=== PATIENT | male | born 1995 | race Caucasian/White ===

== ENCOUNTER 2019-05-06 19:33 | Inpatient (IN) | payer BC ==
[2019-05-06 20:39] LABS: #Eosinphils 0.1 thou/uL (0.0-0.7); #Lymphocytes 1.7 thou/uL (1.20-3.40); #Monocytes 0.4 thou/uL (0.11-0.59); #Neutrophils 4.3 thou/uL (1.40-6.50); %Basophils 0.1 % (0.0-1.0); %Eosinophils 1.6 % (0.0-10.0); %Lymphocytes 25.6 % (21.0-51.0); %Neutrophils 66.7 % (42.0-75.0); Hemoglobin 15.3 g/dL (14.0-18.0); Mean Corpuscular HGB CONC 33.3 g/dL (32.0-36.0); Mean Corpuscular Hemoglobin 28.4 pg (27.0-31.0); Mean Corpuscular Volume 85.4 fL (78.0-98.0); Mean Platelet Volume 5.7 fL (7.4-10.4); Platelet Count 175 thou/uL (130-400); RBC Distribution Width 11.9 % (11.5-14.5); Red Blood Cell (RBC) Count 5.39 mill/uL (4.70-6.10); White Blood Cell (WBC) Count 6.5 thou/uL (4.8-10.8)
[2019-05-06 20:57] LABS: Bilirubin Negative (Negative); Blood, Urine Negative (Negative); Clarity Clear (Clear); Glucose, Urine (Dipstick) Normal (Negative); Leukocyte Negative Leu/uL (Negative); Nitrite Negative (Negative); Protein, Urine (Dipstick) Negative (Neg-Trace); Urobilinogen Normal mg/dL (Less than 2)
[2019-05-06 20:59] LABS: Acetaminophen Less than 6.0 mcg/mL (10.0-30.0); Alcohol Less than 10 mg/dL (Less than 10); CK (CPK) 79 U/L (30-200); Salicylate Less than 8.0 mg/dL (15.0-30.0)
[2019-05-06 21:01] LABS: ALT (SGPT) 15 U/L (8-55); AST (SGOT) 12 U/L (5-34); Albumin 4.5 g/dL (3.5-5.0); Alkaline Phosphatase 39 U/L (40-110); Anion Gap 12 mmol/L (10-20); BUN (Urea Nitrogen) 10 mg/dL (8.9-20.6); Bilirubin, Total 1.1 mg/dL (0.2-1.2); Calc. Creatinine Clearance 0 mL/min (70-130); Calcium 9.2 mg/dL (7.8-10.44); Carbon Dioxide 28 mmol/L (22-29); Chloride 106 mmol/L (98-107); Estimated GFR-MDRD 73; Globulin 2.3 g/dL (2.4-3.5); Glucose 89 mg/dL (70-105); Lipase 12 U/L (8-78); Potassium 4.1 mmol/L (3.5-5.1); Protein, Total 6.8 g/dL (6.0-8.3); Sodium 142 mmol/L (136-145)
[2019-05-06 21:07] LABS: Amphetamine Not Detected (NotDetected); Barbiturates Screen Not Detected (NotDetected); Benzodiazepine Screen Detected (NotDetected); Cocaine Metabolite Screen Not Detected (NotDetected); Medtox Control Line Valid? VALID (VALID); Medtox Reader # READER 4; Methadone Not Detected (NotDetected); Methamphetamine Not Detected (NotDetected); Opiate Screen Not Detected (NotDetected); Oxycodone Screen Not Detected (NotDetected); Phencyclidine (PCP) Not Detected (NotDetected); THC/Cannabinoid Screen Not Detected (NotDetected); Tricyclic Screen Not Detected (NotDetected)
[2019-05-07] MEDS ORDERED: Acetaminophen 325 MG TAB PO PRN (00:21)
[2019-05-07] MEDS ORDERED: Ondansetron PF 4 MG/2 ML Vial IVP PRN (00:21)
[2019-05-07] MEDS ORDERED: Ondansetron ODT 4 MG TAB SL PRN (00:21)
--- NOTE | 2019-05-07 00:54 | PDOC.FPRHP ---
- History of Present Illness Chief Complaint: AMS History of Present Illness: 23yo male with h/o of EtOH and benzo abuse presented to ED as transfer from [facility] for AMS 2/2 suspected benzo withdrawal. On exam, pt was A/ O x1, drowsy but arousable with verbal stimulation and able to obtain ROS but appears confused and unable to provide history 2/2 mentation. History obtained from EDMD and previous documentation. Pt was inpt rehab for alcohol and benzo abuse for past 4 days, was seen normal in the AM, lab was drawn on him at about noon and found to be confused and altered. Taken to [facility]. Concern for benzo withdrawl. Extruding Press Adjuster consulted who rec donald benzos. Pt was agitated and given Verzed and Valium for sedation for CT head. CT head negative. Was then transported to [facility] for higher lv of care. Per report, staff at rehab state very unlikely he had access to outside benzos or EtOH. ED Course: Per report, pt initially A/O x3 with discoordination and slurred speech but able to follow neuro commands and provide some history. Admitted for further eval. - Allergies/Adverse Reactions Allergies Allergy/AdvReac Type Severity Reaction Status Date / Time No Known Allergies Allergy Unverified 05/07/19 00:21 - Home Medications Medication Instructions Recorded Confirmed Type Cyclobenzaprine [Flexeril] 10 mg PO TID 05/07/19 05/07/19 History Escitalopram Oxalate [Lexapro] 10 mg PO DAILY 05/07/19 05/07/19 History Folic Acid 1 mg PO DAILY 05/07/19 05/07/19 History Methocarbamol [Robaxin] 500 mg PO DAILY 05/07/19 05/07/19 History Thiamine 100 mg PO DAILY 05/07/19 05/07/19 History chlordiazePOXIDE/Clidinium Br 1 each PO DAILY 05/07/19 05/07/19 History [Chlordiazepoxide-Clidinium Cap] traZODone HCl [Trazodone HCl] 100 mg PO HS 05/07/19 05/07/19 History - History PMHx: None PSHx: none FHx: noncontributory Social: Admits to abusing EtOH and Xanax abuse. Last use per report was Friday - Review of Systems ROS unobtainable: due to mental status - Vital signs BP: 112/63 HR: 62 RR: 17 Tmax: 97.7 Pox: 100% on RA Wt: 92.17kg - Physical Exam Constitutional: well developed, other (drowsy but arouses to verbal stimulation. GCS 11. Unable to answer questions appropriately.) HEENT: PERRLA, conjunctiva clear, no scleral icterus, other (dry MM, nystagmus) Neck: supple, trachea midline Heart: RRR, normal S1/S2, no murmurs/rubs/gallops, pulses present, no edema Lungs: CTAB, no respiratory distress, good air movement, no rales/rhonchi, no wheezing Abdomen: soft, non-tender, bowel sounds present Musculoskeletal: normal structure, normal tone, other (4/5 strength throughout but difficulty with following commands) Neurological: no focal deficit, other (unable to complete full neuro exam 2/2 mentation, limited exam did not demonstrate any focal deficit) Skin: no rash/lesions Heme/Lymphatic: no unusual bruising or bleeding Psychiatric: other (poor insight, poor memory) FMR H&P: Results - Labs Result Diagrams: 05/06/19 20:30 05/06/19 20:30 Lab results: WBC 6.5 thou/uL (4.8-10.8) 05/06/19 20:30 Hgb 15.3 g/dL (14.0-18.0) 05/06/19 20:30 Hct 46.1 % (42.0-52.0) 05/06/19 20:30 MCV 85.4 fL (78.0-98.0) 05/06/19 20:30 Plt Count 175 thou/uL (130-400) 05/06/19 20:30 Neutrophils % 66.7 % (42.0-75.0) 05/06/19 20:30 Sodium 142 mmol/L (136-145) 05/06/19 20:30 Potassium 4.1 mmol/L (3.5-5.1) 05/06/19 20:30 Chloride 106 mmol/L (98-107) 05/06/19 20:30 Carbon Dioxide 28 mmol/L (22-29) 05/06/19 20:30 BUN 10 mg/dL (8.9-20.6) 05/06/19 20:30 Creatinine 1.23 mg/dL (0.7-1.3) 05/06/19 20:30 Glucose 89 mg/dL (70-105) 05/06/19 20:30 Calcium 9.2 mg/dL (7.8-10.44) 05/06/19 20:30 Total Bilirubin 1.1 mg/dL (0.2-1.2) 05/06/19 20:30 AST 12 U/L (5-34) 05/06/19 20:30 ALT 15 U/L (8-55) 05/06/19 20:30 Alkaline Phosphatase 39 U/L (40-110) L 05/06/19 20:30 Ammonia 20 umol/L (18-72) 05/06/19 20:27 Creatine Kinase 79 U/L (30-200) 05/06/19 20:30 Serum Total Protein 6.8 g/dL (6.0-8.3) 05/06/19 20:30 Albumin 4.5 g/dL (3.5-5.0) 05/06/19 20: Lipase 12 U/L (8-78) 05/06/19 20:30 Urine Ketones Negative mg/dL (Negative) 05/06/19 20:39 Urine Blood Negative (Negative) 05/06/19 20:39 Urine Nitrite Negative (Negative) 05/06/19 20:39 Ur Leukocyte Esterase Negative Macario/uL (Negative) 05/06/19 20:39 - EKG Interpretation EKG: QTc 463, normal sinus, no acute ST or T wave change. Good R wave progression. - Radiology Interpretation CT scan - head Status: report reviewed by me (No acute intracranial process) Chest x-ray Status: report reviewed by me (small 3mm nodules in RUL and LLL) FMR H&P: A/P - Problem List (1) Acute metabolic encephalopathy Current Visit: Yes Status: Acute Code(s): G93.41 - METABOLIC ENCEPHALOPATHY (2) ETOH abuse Current Visit: Yes Status: Acute Code(s): F10.10 - ALCOHOL ABUSE, UNCOMPLICATED (3) Benzodiazepine abuse Current Visit: Yes Status: Acute Code(s): F13.10 - SEDATIVE, HYPNOTIC OR ANXIOLYTIC ABUSE, UNCOMPLICATED - Plan 23mo CF h/o benzo and EtOH abuse presents for acute encephalopathy #Acute encephalopathy - toxic vs metabolic - last seen normal 2/13 AM - mentation appears to wax and wane with GCS of 11 upon presentation - current mentation could be 2/[address] head in ED - no acute s/s of withdrawal - admit to stroke obs for eval - ASE protocol, neuro checks q4 with NIH stroke scale per shift - low suspicion for CVA but in ddx, will need full neuro exam when mentation improves and able to follow commands, consider MRI if mentation does not improve - Unable to take PO 2/2 mentation at this time - Thiamine and folic acid IV - Valium 10mg q6hr to taper as tolerated - will hold home sedating medications - PT/OT/Speech eval - CBC and CMP WNL, UA clean, UDS positive for benzos, TSH WNL, Mg and Phos WNL - will cont to monitor mentation #Lung nodules - outpatient workup, suspect chronic fungal infx, histo vs coccidiomycoses PCP: [facility] - OOT Code: Full IVF: LR @ 120cc/hr Diet: NPO VTE: SCDs Disposition/LOS: Admit to stroke obs for acute encephalopathy. Monitor status, work up pending. Anticipate hospitalization < 48hrs pending clinical course. FMR H&P: Upper Level - Pertinent history 23 year old male that was at outpatient rehab facility for alcohol and benzo abuse presented to an outside ED for altered mentation. The onset of the altered mentation was around 12xtensive workup was 12:00 PM on 03/05. Patient was reportedly A&O x1. He was sent over to [facility] and extensive workup was initiated. CT brain negative. Patient reportedly became agitated and was given versed and ativan prior to CT scan. He then became very drowsy. Patient was on day 4 of rehab. Most information obtained from ED physician and review of records. Patient sent over from freestanding ED due to concerns for withdrawal and development of DT's. They felt patient needed higher level of care. - Pertinent findings General: Alert, drowsy, answers questions slowly. A&O x3 on my exam. HEENT: Dry MM Card: RRR, no murmurs Resp: CTA Abdomen: Soft, nontender Neuro: No focal deficits. Adult Family Home Program Manager strength intact. Patient following commands although difficult to keep awake. - Plan Date/Time: 05/07/19 0053 I, Luanne Montero, have evaluated this patient and agree with findings/plan as outlined by psychology intern resident. Pertinent changes/additions are listed here. Acute encephalopathy - Suspect 2/2 withdrawal based on review of documentation - Patient on librax at rehab facility - Initially transferred due to concerns for DT's; however, patient with no symptoms consistent with DT's at this time. Patient reportedly agitated at outside ED, but no elevation in HR, no fever, HTN - No signs of infection; CBC, CMP, UA normal - Ammonia normal - Will treat as withdrawal given no other explanation; Will start on diazepam IV as patient not tolerating PO for librium taper; will start taper over as we do not know where patient was at in the taper process - UDS positive only for benzos which patient received by ED and at rehab - ASE protocol - Banana bag w/ thiamine and folic acid - Q4h neuro checks Lung nodules - Will need follow up in outpatient setting - Do not think these are infectious nodules Alcohol abuse - See plan for above Benzo abuse - See plan for above DVT PPX: SCD's Code status: Full Dispo: Obs on stroke. Anticipate LOS 24-48 hours. Addendum - Attending - Attending Attestation Date/Time: 05/07/19 1220 I personally evaluated the patient and discussed the management with Dr. Padron/ Helio I agree with the History, Examination, Assessment and Plan documented above with any addition or exceptions noted below. 23 yo male admitted from detox/rehab for further inpatient evaluation AMS. Discussed case with Patient's Mother and Treatment facility [facility] with the patients permission. Patient gave rehab facilty much less estimation of the extent of his benzodiazepine and alcohol usuage. Patient with longstanding substance abuse and multiple rehabilitation. Patient Mother states patient was placed in detox Friday PM for further care noted his drug screen was only positive for THC at that time. Patient with 14 previous rehabilitations and now with limited parental resources to continue to assist patient. Patient relates he was recently consuming 2 pints vodka daily plus 7-10 Xanax "bars" 2mg daily. Patient endorses heavy Marijuana usuage by smoking. Medication lexapro clonidine trazadone librium 50 mg tid at rehab allergery NKDA Surgery none Hospitalization as above numerous rehab admissions was at [facility] with methamphetamine use Social 1 sister living in [facility] alcoholism noted ROS only notable withdrawal symptoms of N/V abdominal cramp anxiety remote history of asthma no inhalers used recently Patient s/p intravenous diazepam more alert and responsive with decreased aggitation. afelbrile currently with tachycardia noted HEENT AT/NC PEERL neck supple patient moves all extremities Heart no murmer or gallop Lung CTA without wheezing abdomen soft ext no C/C/e no sign recent trauma injury neuro patient oriented to person and place trouble with date but endorses admission to rehab Friday no focal motor sensory deficits A/P significant benzodiazepine/alcohol usuage with s/s c/w benzodiazepine withdrawal he appears very benzo tolerant and requiring large dose diazepam for his agitation and restlessness would rec scheduled librium 100 mg q 8 with continue diazepam 5-10 mg IV q 6 hours prn if unstable rec transfer to MICU for further monitoring of withdrawal. No s/s of infectious or other metabolic concerns to explain AMS other than benzodiazepine withdrawal rec screen for hepatitis C, HIV, RPR if not recently done although he denies IV drug usuage. If he deteriorates consider further eval prn change in status.
[2019-05-07] MEDS ORDERED: Calcium Carbonate 500 MG ChewTAB PO PRN (00:55)
[2019-05-07] MEDS ORDERED: Folic Acid 1 MG TAB PO SCH ×2 (01:45→21:00)
[2019-05-07] MEDS ORDERED: Thiamine 100 MG TAB PO SCH ×2 (01:45→21:00)
[2019-05-07 02:02] LABS: Magnesium 1.8 mg/dL (1.6-2.6); Phosphorus 3.2 mg/dL (2.3-4.7)
[2019-05-07] MEDS ORDERED: Thiamine HCl 200 MG/2 ML VIAL IM SCH (02:15)
[2019-05-07 02:19] VITALS: BMI 28.3
[2019-05-07] MEDS: Diazepam 10 MG/2 ML SYRINGE IVP SCH ×2 (02:31→09:23)
[2019-05-07] MEDS: Lactated Ringer's 1,000 ML IV SCH ×3 (02:35→16:48)
[2019-05-07] MEDS ORDERED: Diazepam 10 MG/2 ML SYRINGE IVP SCH (03:30)
[2019-05-07] MEDS: Escitalopram Oxalate 10 mg Tablet PO SCH (08:24)
[2019-05-07] MEDS: Multivitamin W/ Minerals 1 TAB PO SCH (08:24)
[2019-05-07] MEDS: Folic Acid 1 MG TAB PO SCH (08:24)
[2019-05-07] MEDS ORDERED: FLU VACC QS2019-20(6MOS UP)/PF 60 MCG/0.5 ML SYRINGE IM ONE (09:00)
[2019-05-07 09:12] LABS: HIV (1/2) Antibody/Antigen Non-Reactive (NonReactive); HIV 1/2 INDEX 0.13 S/CO (<1.00); Syphilis Antibody Nonreactive (Nonreactive); Syphilis Antibody Index 0.04 S/CO (<1.00 Non-Reactive)
[2019-05-07] MEDS ORDERED: chlordiazePOXIDE HCl 25 MG CAP PO SCH (12:30)
[2019-05-07] MEDS: chlordiazePOXIDE HCl 25 MG CAP PO SCH ×2 (14:02→21:58)
[2019-05-07] MEDS: Acetaminophen 325 MG TAB PO PRN (14:03)
[2019-05-07] MEDS: Diazepam 10 MG/2 ML SYRINGE IVP PRN (17:58)
[2019-05-07] MEDS ORDERED: Ondansetron PF 4 MG/2 ML Vial SLOW IVP PRN (20:00)
[2019-05-08] MEDS: Lactated Ringer's 1,000 ML IV SCH ×3 (03:14→23:50)
[2019-05-08] MEDS: Diazepam 10 MG/2 ML SYRINGE IVP PRN ×3 (03:57→18:26)
[2019-05-08] MEDS: chlordiazePOXIDE HCl 25 MG CAP PO SCH ×3 (06:10→21:09)
--- NOTE | 2019-05-08 06:43 | PDOC.FM ---
- Subjective Subjective: pt in bed, agitated, mild hallucinations present, VSS - Objective Vital Signs & Weight: Vital Signs (12 hours) Temp Pulse Resp BP BP BP Pulse Ox 05/08/19 03:17 97.6 F 65 18 135/74 97 05/08/19 03:00 135/74 05/07/19 23:40 100/67 05/07/19 23:34 98.6 F 64 100/67 95 05/07/19 21:56 117/71 05/07/19 21:54 98.1 F 18 117/71 98 05/07/19 20:00 98 Weight Weight 92.17 kg I&O: 05/06/19 05/07/19 05/08/19 06:59 06:59 06:59 Intake Total 363 2513 Output Total 600 Balance -237 2513 Result Diagrams: 05/06/19 20:30 05/06/19 20:30 Phys Exam - Physical Examination mild distress HEENT: moist MMs Neck: full ROM Gastrointestinal: no distention Musculoskeletal: pulses present Neurological: moves all 4 limbs Lymphatic: no nodes Psychiatric: normal affect Skin: no rash Dx/Plan (1) Severe alcohol withdrawal delirium Code(s): F10.231 - ALCOHOL DEPENDENCE WITH WITHDRAWAL DELIRIUM Status: Acute (2) Benzodiazepine abuse Code(s): F13.10 - SEDATIVE, HYPNOTIC OR ANXIOLYTIC ABUSE, UNCOMPLICATED Status : Acute (3) ETOH abuse Code(s): F10.10 - ALCOHOL ABUSE, UNCOMPLICATED Status: Acute - Plan Plan: severe withdrawal etoh/benzos - librium 100 scheduled, valium 10 q6h for agitation - monitor closely, VSS - transition to librium alone for DC back to rehab facility dispo: treat breakthrough withdrawal symptoms and monitor
[2019-05-08] MEDS ORDERED: Diazepam 10 MG/2 ML SYRINGE IVP SCH (07:00)
[2019-05-08] MEDS: Escitalopram Oxalate 10 mg Tablet PO SCH (08:28)
[2019-05-08] MEDS: Magnesium Oxide 400 MG TAB PO SCH (08:28)
[2019-05-08] MEDS: Folic Acid 1 MG TAB PO SCH (08:28)
[2019-05-08] MEDS: Thiamine 100 MG TAB PO SCH (08:28)
[2019-05-08] MEDS: Multivitamin W/ Minerals 1 TAB PO SCH (08:28)
[2019-05-08] MEDS: Acetaminophen 325 MG TAB PO PRN (09:33)
[2019-05-08] MEDS ORDERED: Melatonin 3 MG TAB PO PRN (15:05)
--- NOTE | 2019-05-08 16:01 | PRG ---
DATE OF SERVICE: 05/08/2019 Please see note from Dr. Mauricio Cadet, for which I agree the patient came in with altered mental status from likely alcohol and benzodiazepines withdrawal. According to the family, he went about 3 or 4 months in a rehab facility, and so was sober and then binge drank and did some Xanax for about 8 or 10 days before he came in to a new facility, was there for a few days, and then got worse and then altered, so they are little bit shock that he is having much problem as he is having, but certainly they seem like pretty classic benzo withdrawals. Denied any other type of drug abuse that he knows of, but overnight is improved with very high-dose Librium a total 300 mg a day and an occasional Valium. He tells me that he is tolerating it fairly well. Vital signs are fine. No major tremor on exam. He is alert and oriented x3. Fairly appropriate. Questions were answered with family and then idea would be eventually get him on a slower Librium taper. We are going to schedule a Librium q.i.d., actually we will do q.4 instead of q.8. Job ID: [id number]
[2019-05-09] MEDS: Diazepam 10 MG/2 ML SYRINGE IVP PRN ×4 (02:23→20:49)
[2019-05-09] MEDS: Lactated Ringer's 1,000 ML IV SCH ×3 (05:47→20:12)
[2019-05-09] MEDS: chlordiazePOXIDE HCl 25 MG CAP PO SCH ×4 (05:59→20:11)
--- NOTE | 2019-05-09 06:59 | PDOC.FM ---
- Subjective Subjective: pt improved overall, some elevated BP/pulse overnight. but reports good sleep, less agitation today, denies hallucinations - Objective Vital Signs & Weight: Vital Signs (12 hours) Temp Pulse Resp BP Pulse Ox 05/09/19 04:00 99 F 114 H 16 142/73 H 96 05/09/19 00:00 98.2 F 108 H 16 161/79 H 98 05/08/19 20:19 99 05/08/19 20:00 98.2 F 103 H 16 152/82 H 99 Weight Weight 92.17 kg I&O: 05/07/19 05/08/19 05/09/19 06:59 06:59 06:59 Intake Total 363 2513 1680 Output Total 600 Balance -237 2513 1680 Result Diagrams: 05/06/19 20:30 05/06/19 20:30 Phys Exam - Physical Examination Constitutional: NAD HEENT: moist MMs Neck: no JVD Gastrointestinal: no distention Musculoskeletal: no edema Neurological: moves all 4 limbs Lymphatic: no nodes Psychiatric: normal affect Skin: no rash Dx/Plan (1) Severe alcohol withdrawal delirium Code(s): F10.231 - ALCOHOL DEPENDENCE WITH WITHDRAWAL DELIRIUM Status: Acute (2) Benzodiazepine abuse Code(s): F13.10 - SEDATIVE, HYPNOTIC OR ANXIOLYTIC ABUSE, UNCOMPLICATED Status : Acute (3) ETOH abuse Code(s): F10.10 - ALCOHOL ABUSE, UNCOMPLICATED Status: Acute - Plan Plan: severe withdrawal etoh/benzos - librium 100 scheduled, valium 10 q6h for agitation - monitor closely, VSS - transition to librium alone for DC back to rehab facility dispo: treat breakthrough withdrawal symptoms and monitor
[2019-05-09 07:46] LABS: ALT (SGPT) 13 U/L (8-55); AST (SGOT) 16 U/L (5-34); Albumin 4.3 g/dL (3.5-5.0); Alkaline Phosphatase 38 U/L (40-110); Anion Gap 12 mmol/L (10-20); BUN (Urea Nitrogen) 9 mg/dL (8.9-20.6); Bilirubin, Total 0.8 mg/dL (0.2-1.2); Calc. Creatinine Clearance 122 mL/min (70-130); Calcium 9.3 mg/dL (7.8-10.44); Carbon Dioxide 26 mmol/L (22-29); Chloride 109 mmol/L (98-107); Estimated GFR-MDRD 73; Globulin 2.2 g/dL (2.4-3.5); Glucose 103 mg/dL (70-105); Potassium 3.7 mmol/L (3.5-5.1); Protein, Total 6.5 g/dL (6.0-8.3); Sodium 143 mmol/L (136-145)
[2019-05-09] MEDS: Escitalopram Oxalate 10 mg Tablet PO SCH (08:20)
[2019-05-09] MEDS: Magnesium Oxide 400 MG TAB PO SCH (08:20)
[2019-05-09] MEDS: Folic Acid 1 MG TAB PO SCH (08:20)
[2019-05-09] MEDS: Thiamine 100 MG TAB PO SCH (08:20)
[2019-05-09] MEDS: Multivitamin W/ Minerals 1 TAB PO SCH (08:20)
[2019-05-09] MEDS ORDERED: Haloperidol 1 MG TAB PO SCH ×2 (11:45→21:00)
[2019-05-09] MEDS ORDERED: chlordiazePOXIDE HCl 25 MG CAP PO SCH ×2 (12:00→14:00)
--- NOTE | 2019-05-09 12:37 | PRG ---
DATE OF SERVICE: 05/09/2019 Please see the note from Dr. Mauricio Cadet, for which I agree. The patient was seen, evaluated, discussed, and examined with the residents by bedside. Last night, had a little bit of tachycardia and a little bit of hypertension. Still somewhat tremulous, sounds like he is asking for Valium constantly in addition to the underlying Librium, but he feels like mentally he is doing better, eating okay, and otherwise on physical exam, he is minimally tremulous. Nothing new has popped up otherwise. So, the plan is to maybe space out the Librium to 50 mg p.o. q.4 instead of 100 q.8 and hopefully, we will be able to decrease the Valium use. Any kind of confusion, maybe consider Haldavid or Neil as well, but it is somewhat mentally he is doing better. Job ID: [id number]
[2019-05-09] MEDS ORDERED: Haloperidol 5 MG TAB PO PRN (18:19)
[2019-05-10] MEDS: chlordiazePOXIDE HCl 25 MG CAP PO SCH ×3 (00:38→08:41)
[2019-05-10] MEDS: Lactated Ringer's 1,000 ML IV SCH (06:43)
--- NOTE | 2019-05-10 06:44 | PDOC.FM ---
- Subjective Subjective: pt up moving about room, no tremors or hallucinations - Objective Vital Signs & Weight: Vital Signs (12 hours) Temp Pulse Resp BP Pulse Ox 05/10/19 04:00 97.8 F 82 16 146/73 H 98 05/10/19 00:00 97.7 F 103 H 18 155/83 H 95 05/09/19 20:11 96 05/09/19 20:00 98.2 F 86 18 144/87 H 96 Weight Weight 92.17 kg I&O: 05/08/19 05/09/19 05/10/19 06:59 06:59 06:59 Intake Total 2513 1680 Balance 2513 1680 Result Diagrams: 05/06/19 20:30 05/09/19 07:23 Phys Exam - Physical Examination Constitutional: NAD HEENT: moist MMs Neck: full ROM Gastrointestinal: no distention Musculoskeletal: no edema Neurological: moves all 4 limbs Psychiatric: normal affect Skin: no rash Dx/Plan (1) Severe alcohol withdrawal delirium Code(s): F10.231 - ALCOHOL DEPENDENCE WITH WITHDRAWAL DELIRIUM Status: Acute (2) Benzodiazepine abuse Code(s): F13.10 - SEDATIVE, HYPNOTIC OR ANXIOLYTIC ABUSE, UNCOMPLICATED Status : Acute (3) ETOH abuse Code(s): F10.10 - ALCOHOL ABUSE, UNCOMPLICATED Status: Acute - Plan Plan: severe withdrawal etoh/benzos - librium 50q4hr scheduled, valium 10 q6h prn for agitation - monitor closely, VSS - transition to librium alone for DC back to rehab facility dispo: has not needed prns, will dc with librium to rehab, they will monitor taper there Addendum - Attending - Attending Attestation Date/Time: 05/10/19 5754 I personally evaluated the patient and discussed the management with Dr. Cadet I agree with the History, Examination, Assessment and Plan documented above with any addition or exceptions noted below. Patient appears stable on current scheduled librium dosage without need for IV diazepam last 12+ hours he is stable to d/c to rehab when Father arrives and can transport patient directly under his care back to rehab. Would anticipate he will need prolonged librium taper.
[2019-05-10 08:17] VITALS: TEMP 97.1
[2019-05-10] MEDS: Thiamine 100 MG TAB PO SCH (08:41)
[2019-05-10] MEDS: Folic Acid 1 MG TAB PO SCH (08:41)
[2019-05-10] MEDS: Multivitamin W/ Minerals 1 TAB PO SCH (08:41)
[2019-05-10] MEDS: Escitalopram Oxalate 10 mg Tablet PO SCH (08:41)
[2019-05-10] MEDS: Magnesium Oxide 400 MG TAB PO SCH (08:41)
[2019-05-10 10:54] VITALS: BP 143/83
--- NOTE | 2019-05-11 10:34 | PQF ---
CLINICAL DOCUMENTATION IMPROVEMENT CLARIFICATION FORM: ICD-10 Updated PLEASE DO AN ADDENDUM TO THE PROGRESS NOTE WITH ANY DOCUMENTATION UPDATES OR ADDITIONS AND CARRY THROUGH TO DC SUMMARY. THANK YOU. DATE: 05/11/2019 ATTN: Dr. Cadet/ Attending Dr. Capps Please exercise your independent, professional judgment in responding to the clarification form. Clinical indicators are provided on the bottom of this form for your review Please check appropriate box(s): [ ] Encephalopathy: Etiology: [ ] Metabolic [ ] Toxic [ x ] Drug induced: [ ] Unspecified [ ] Other (please specify) [ ] Other diagnosis [ ] Unable to determine In addition, please specify: Present on Admission (POA): [ x] Yes [ ] No [ ] Unable to determine For continuity of documentation, please document condition throughout progress notes and discharge summary. Thank You. CLINICAL INDICATORS - SIGNS / SYMPTOMS / LABS / RESULTS AND LOCATION IN EMR H&P 05/06: Acute encephalopathy -toxic vs metabolic Upper level: Acute encephalopathy -suspect / withdrawal based on review of documentation 05/08 ([place]) the patient came in with altered mental status from likely alcohol and benzodiazepines withdrawal. He is alert and oriented x3. RISKS: H&P 05/06:Upper level: 23 yo was at outpatient rehab facility for alcohol and benzo abuse presented to outside ED for altered mentation. TREATMENT: Order 05/07: Librium 10mg po TID. (stopped 05/07) Order 05/09: Librium 50 mg q 4 hr. Thank you, Deepa (This form is maintained as a part of the permanent medical record) 2015 [employer]. All Rights Reserved Deepa Gilbert RN, BSN [email or web address] Office: [phone] [facility]
--- NOTE | 2019-05-11 14:38 | DIS ---
DATE OF ADMISSION: 05/06/2019 DATE OF DISCHARGE: 05/10/2019 ADMITTING ATTENDING: Denys Capps MD DISCHARGE ATTENDING: Denys Capps MD CONSULTS: None. IMAGING: None. PROCEDURES: None. DISCHARGE MEDICATIONS: 1. Thiamine 100 mg p.o. daily. 2. Folic acid 1 mg p.o. daily. 3. Lexapro 10 mg p.o. daily. 4. Librium 50 mg p.o. q.4 hours. 5. Melatonin 3 mg at bedtime p.r.n. DISCHARGE DIAGNOSIS: Severe alcohol and benzodiazepine withdrawal. HISTORY OF PRESENT ILLNESS/HOSPITAL COURSE: Mr. Oliveros is a 23-year-old male with a history of alcohol and benzodiazepine abuse, presented to the emergency department from an outside ER after agitation and tremors, altered mental status that was noted in his detox/rehab facility, where he had been on a Librium taper, admitted to stroke floor for monitoring of alcohol and benzodiazepine withdrawal. His dose of Librium was increased to the max dose and he was given 10 mg of Valium p.r.n. for agitation and withdrawal symptoms. The patient was able to slowly be weaned off Valium, required no p.r.n. medications for 12 hours prior to discharge. Deemed stable for discharge back to rehab facility on 50 mg q.4 hours of Librium to be tapered there. DISCHARGE INSTRUCTIONS: 1. Location: Alcohol/benzo rehab facility. 2. Activity: As tolerated. 3. Diet: Regular. 4. Followup: With rehab facility upon discharge. Job ID: [id number]
== END 2019-05-10 11:10 | disposition home or self-care (01) | DRG 896 ==
LOC: ERS 19:33 → 2SE 21:30 → OBSVTOIN 21:30
PROVIDERS: ADMIT Family Medicine; ATTEND Family Medicine
DX: F15.93 Other stimulant use, unspecified with withdrawal (principal); G92 Toxic encephalopathy; F10.239 Alcohol dependence with withdrawal, unspecified; R91.1 Solitary pulmonary nodule; F17.290 Nicotine dependence, other tobacco product, uncomplicated; Y90.0 Blood alcohol level of less than 20 mg/100 ml; R40.2362 Coma scale, best motor response, obeys commands, at arrival to emergency department; R40.2142 Coma scale, eyes open, spontaneous, at arrival to emergency department; R40.2242 Coma scale, best verbal response, confused conversation, at arrival to emergency department
CPT/HCPCS: 36415; 36416; 80053; 80306; 80307; 81003; 82140; 82550; 82607; 83690; 83735; 83930; 84100; 84145; 84443; 84484; 85025; 86780; 87389; 93005; J3360; J3411; J3475; J3490